=== PATIENT | female | born 1985 | race Caucasian/White ===

== ENCOUNTER 2017-03-16 19:08 | Emergency (ER) | payer SELFPAY ==
[2017-03-16 19:38] VITALS: BP 152/100; PULSE 95; RESP 20; TEMP 97.9; O2SAT 100
[2017-03-16 19:38] LABS: BASOPHILS % (AUTO) 1 % (0-3); EOSINOPHILS % (AUTO) 1 % (0-9); HEMATOCRIT 39 % (35-47); MEAN CORPUSCULAR HGB CONC 34.7 gm/dl (32.0-36.0); MEAN CORPUSCULAR VOLUME 85 fL (81-99); MONOCYTES % (AUTO) 5.3 % (0-12)
[2017-03-16 19:59] LABS: ALBUMIN 3.8 gm/dl (3.4-5.0); ALT 38 IU/L (14-63); GLOM FILT RATE 95 mL/min (>60); POTASSIUM 4.2 mMol/L (3.5-5.1); SODIUM 140 mMol/L (136-145); THYROID STIMULATING HORMONE 3.192 uIU/ml (0.358-3.740)
[2017-03-16 20:15] LABS: APPEARANCE,URINE Clear; BILIRUBIN,URINE NEGATIVE (NEGATIVE); COLOR,URINE Yellow; GLUCOSE, URINE (UA) NEGATIVE (NEGATIVE); KETONES,URINE NEGATIVE (NEGATIVE); LEUKOCYTE ESTERASE ,URINE TRACE (NEGATIVE); NITRATE,URINE NEGATIVE (NEGATIVE); OCCULT BLOOD,URINE TRACE INTACT (NEG-TRACE); UROBILINOGEN,URINE 0.2 (0.2-1.0 EU)
[2017-03-16 20:37] LABS: AMPHETAMINES NEGATIVE (NEGATIVE); METHADONE NEGATIVE (NEGATIVE); METHAMPHETAMINES NEGATIVE (NEGATIVE); OPIATES(OP13) NEGATIVE (NEGATIVE); OXYCODONE(OXY) NEGATIVE (NEGATIVE); PROPOXYPHENE(PPX) NEGATIVE (NEGATIVE); RBC,URINE 0-1 (0-3AV/HPF); TRICYCLIC ANTIDEPRESSANTS NEGATIVE (NEGATIVE); WBC,URINE 0-2 (0-5AV/HPF)
== END 2017-03-16 20:55 | disposition home or self-care (01) | DRG 880 ==
LOC: ED 19:08
DX: R45.851 Suicidal ideations (principal)
CPT/HCPCS: 80053; 80305; 80307; 81001; 84443; 84703; 85025; 99282; 99283